=== PATIENT | male | born 1980 | race Caucasian/White ===

== ENCOUNTER 2021-09-25 12:57 | Emergency (ER) | payer OTHER, SELFPAY ==
[2021-09-25] VITALS (9 sets, daily range): BP systolic 113–128; BP diastolic 74–87; PULSE 59–74; RESP 16–24; TEMP 36.2; O2SAT 96–100
--- NOTE | ~2021-09-25 | XR_ITS ---
EXAMINATION: XR chest 2V 09/25/2021 13:33 INDICATION: Chest pain PROCEDURE: 2 view chest COMPARISON: No prior studies for comparison. FINDINGS: The lungs are clear. The cardiomediastinal silhouette is within normal limits. There are no pleural effusions. There is no pneumothorax suspected. IMPRESSION: 1: NO ACUTE CARDIOPULMONARY DISEASE. Reviewed, dictated and finalized at location B.
--- NOTE | 2021-09-25 12:59 | ECG_ITS ---
Measurements Intervals [place] Rate: 63 P: 21 MN: 135 QRS: -11 QRSD: 98 T: 10 QT: 369 QTc: 378 Interpretive Statements SINUS RHYTHM NORMAL EKG NO PREVIOUS ECG AVAILABLE FOR COMPARISON Electronically Signed On 09-26-2021 13:20:53 CDT by Whitney Randolph M.D.
[2021-09-25 13:15] LABS: Basophils Absolute Auto 0.1 K/mm3 (0.0-0.1); Basophils Percent Auto 0.8 % (0.2-1.2); Eosinophils Absolute Auto 0.1 K/mm3 (0-0.3); Eosinophils Percent Auto 0.6 % (0-4.4); Hematocrit 42.8 % (42.0-52.0); Hemoglobin 14.3 g/dL (14.0-18.0); Immature Granulocyte Absolute 0.01 K/mm3 (0.00-0.031); Immature Granulocyte Percent A 0.1 % (0-0.5); Lymphocytes Absolute Auto 2.62 K/mm3 (0.9-3.2); Lymphocytes Percent Auto 33.8 % (18.3-44.2); Mean Corpuscular HGB Conc 33.4 g/dl (32-36); Mean Corpuscular Volume 92.8 fl (80-100); Mean Platelet Volume 8.4 fl (7.4-10.4); Monocytes Absolute Auto 0.6 K/mm3 (0.1-0.6); Monocytes Percent Auto 8.1 % (2.6-8.5); Neutrophils Absolute Auto 4.4 K/mm3 (1.3-6.7); Neutrophils Percent Auto 56.6 % (45.5-73.1); Platelet Count Result 346 k/mm3 (150-375); Red Blood Count 4.61 M/mm3 (4.6-6.20); Red Cell Distribution Width 13.1 % (11.5-14.5); White Blood Count 7.8 K/mm3 (4.5-10.0)
--- NOTE | 2021-09-25 13:17 | ED.CHESTPAIN ---
HPI - Chest Pain General Chief Complaint: Chest Pain Stated Complaint: chest pain intermittent x several day Time Seen by Provider: 09/25/21 13:13 History of Present Illness HPI narrative: pt endorses 1wk of intermittent L chest pain that seems to happen when he pushes his pecs together and lays back, not associated with any nausea or vomiting, no shortness of breath, does not recall any recent trauma, states that he has been quite stressed at work. Has had similar symptoms several years ago which also did not reveal anything. Pain does not radiate. Not constant, not worse with exertion Related Data Allergies Allergy/AdvReac Type Severity Reaction Status Date / Time azithromycin Allergy Rash Verified 09/25/21 14:14 Review of Systems Review of Systems: CONST: No fever. HEENT: No sore throat C/V: chest pain RESP: No cough GI: No abdominal pain : No dysuria. M/S: No joint pain. SKIN: No rash. NEURO: [No headache or focal numbness or weakness] PSYCH: Stressed out [facility] Past Medical History Medical History (Updated 09/25/21 @ 17:49 by Joy Vanegas MD) Tension headache Social History Social History Smoking status: Light tobacco smoker Alcohol intake: current Exam Narrative: EXAMINATION OF ORGAN SYSTEMS/BODY AREAS: Constitutional: Vital signs per nursing GENERAL:[No acute distress, non-toxic appearing.] HEAD: Normal with no signs of head trauma. EYES: EOMI, conjunctiva normal ENT: Hearing grossly intact LUNGS: Nonlabored breathing. HEART: [Regular rate and rhythm] ABD: [Soft], [nontender to palpation] EXT: Normal range of motion SKIN: [No rashes or lesions.] NEURO: [Alert and oriented x 3. No gross focal sensory or strength deficits.] PSYCH: Normal affect Course Vital Signs Vital signs: Vital Signs Temperature 97.1 F L 09/25/21 13:06 Pulse Rate 66 09/25/21 13:06 Respiratory Rate 16 09/25/21 13:06 Blood Pressure 128/80 09/25/21 13:06 Pulse Oximetry 100 09/25/21 13:06 Oxygen Delivery Room Air 09/25/21 13:06 Temperature 97.1 F L 09/25/21 13:06 Pulse Rate 59 L 09/25/21 14:15 Respiratory Rate 16 09/25/21 14:15 Blood Pressure 113/74 09/25/21 14:02 Pulse Oximetry 98 09/25/21 14:15 Oxygen Delivery Room Air 09/25/21 14:10 MDM - Chest Pain MDM Narrative Medical decision making narrative: ED COURSE AND MEDICAL DECISION MAKINyoM presenting with chest pain. EKG done in triage negative for acute ischemic changes. Cardiac workup is initiated. HEART score is 0 with no acute ischemic changes on EKG and negative troponin making ACS unlikely. Wells low risk with negative PERC making PE unlikely. Presentation not consistent with dissection or aneurysm without radiation of pain or pulse deficits. CXR negative for mediastinal widening. No abdominal pain or signs of sepsis that would be concerning for esophageal perforation or mediastinitis. No cardiomegaly or JVD to suggest pericardial effusion/tamponade. On repeat evaluation just prior to discharge, the patient is no acute distress. I had a long discussion with the patient and with shared decision making, he is comfortable with outpatient management. He was given clear return instructions by myself in person as well as on discharge paperwork. Procedures: Pulse oximetry interpretation - not hypoxic. EKG interpretation. Review of medical records. Lab Data Result diagrams: 09/25/21 13:09 09/25/21 13:09 Labs: Lab Results 09/25/21 09/25/21 09/25/21 Range/Units 13:09 13:09 13:36 WBC 7.8 (4.5-10.0) K/mm3 RBC 4.61 (4.6-6.20) M/mm3 Hgb 14.3 (14.0-18.0) g/dL Hct 42.8 (42.0-52.0) % MCV 92.8 (80-100) fl MCH 31.0 (26-34) pg MCHC 33.4 (32-36) g/dl RDW 13.1 (11.5-14.5) % Plt Count 346 (150-375) k/mm3 MPV 8.4 (7.4-10.4) fl Immature Gran % (Auto) 0.1 (0-0.5) % Neut % (Auto) 56.6 (45.5-73.1) % Lymph % (Auto) 33.8 (18
[2021-09-25 13:24] LABS: Alanine Aminotransferase 37 U/L (6-50); Alkaline Phosphatase 43 U/L (38-126); Anion Gap 10 mmol/L (8-16); Aspartate Amino Transferase 27 U/L (17-59); Bilirubin,Total 0.8 mg/dL (0.2-1.3); Blood Urea Nitrogen 15 mg/dL (9-20); Calcium 9.9 mg/dL (8.4-10.2); Carbon Dioxide 29 mmol/L (22-30); Chloride 101 mmol/L (98-107); Estimated CRCL calculation 87 ml/min; Estimated Glomerular Filt Rate > 60; Glucose 94 mg/dL (65-110); Lipase 23 U/L (23-300); Potassium 4.5 mmol/L (3.4-5.0); Sodium 140 mmol/L (137-145)
[2021-09-25 13:36] LABS: Troponin I < 0.012 ng/mL (0.000-0.034)
[2021-09-25 14:00] LABS: Prothrombin Time 12.4 Seconds (11.1-14.7)
[2021-09-25 14:01] LABS: Partial Thromboplastin Time 26.3 SECONDS (22.3-36.8)
== END 2021-09-25 14:17 | disposition home or self-care (01) ==
PROVIDERS: Nurse Practitioner Family; Emergency Provider Emergency Medicine
DX: R07.9 Chest pain, unspecified (principal); Z72.0 Tobacco use
CPT/HCPCS: 36415; 71046; 80053; 83690; 84484; 85025; 85610; 85730; 93005; 99284